=== PATIENT | male | born 1975 | race Caucasian/White ===

== ENCOUNTER 2023-06-16 07:37 | Day surgery (SDC) | payer MEDICAID ==
[2023-06-16] MEDS ORDERED: Propofol 200 MG/20 ML SDV IV ONE (07:38)
[2023-06-16] MEDS ORDERED: fentaNYL 100 MCG/2 ML SDV IV ONE (07:38)
[2023-06-16] MEDS ORDERED: Midazolam 1 MG/ML 2 ML SDV IV ONE (07:38)
[2023-06-16] MEDS ORDERED: Sodium Chloride 0.9% 10 ML Syringe FLUSH PRN (07:45)
[2023-06-16] MEDS: Lactated Ringers 1,000 ML IV SCH (08:20)
[2023-06-16] MEDS: Simethicone Drops 40 MG/0.6 ML 30 ML Bottle ONE (08:39)
[2023-06-18 20:36] LABS: ADENOVIRUS 40/41 PCR Not Detected; ASTROVIRUS PCR Not Detected; CAMPYLOBACTER PCR Not Detected; CRYPTOSPORIDIUM PCR Not Detected; CYCLOSPORA CAYETANENSIS PCR Not Detected; ENTAMOEBA HISTOLYTICA PCR Not Detected; ENTEROAGGREGATIVE E. COLI PCR Not Detected; ENTEROPATHOGENIC E. COLI PCR Not Detected; ENTEROTOXIGENIC E. COLI PCR Not Detected; GIARDIA LAMBLIA PCR Not Detected; NOROVIRUS GI/GII PCR Not Detected; PLESIOMONAS SHIGELLOIDES PCR Not Detected; ROTAVIRUS A PCR Not Detected; SALMONELLA PCR Not Detected; SAPOVIRUS PCR Not Detected; SHIG/ENTEROINVASIVE E COLI PCR Not Detected; SHIGA TOXIN-PRODUC E. COLI PCR Not Detected; VIBRIO CHOLERAE PCR Not Detected; VIBRIO PCR Not Detected; YERSINIA ENTEROCOLITICA PCR Not Detected
[2023-06-19 01:15] LABS: LACTOFERRIN,FECAL BY ELISA Negative (Negative)
== END 2023-06-16 09:56 | disposition home or self-care (01) ==
LOC: FB.SDS 07:37
PROVIDERS: ATTEND Surgery
DX: D12.6 Benign neoplasm of colon, unspecified (principal); Z80.0 Family history of malignant neoplasm of digestive organs; K50.90 Crohn's disease, unspecified, without complications
CPT/HCPCS: 83630; 87507; 88305; A9270-GY; J2250; J2704; J3010; J7120